=== PATIENT | female | born 1965 | race Hispanic/Latino ===

== ENCOUNTER 2017-09-05 19:56 | Emergency (ER) | payer BC ==
[2017-09-05 19:56] VITALS: BMI 19.7
[2017-09-05 20:05] VITALS: BP 118/68; PULSE 65; RESP 18; TEMP 97.9; O2SAT 98
--- NOTE | 2017-09-05 20:43 | ED PDOC ---
HPI: General Adult Time Seen by Provider: 09/05/17 20:10 Chief Complaint (Nursing): Abnormal Skin Integrity Chief Complaint (Provider): Left thumb laceration History Per: Patient History/Exam Limitations: no limitations Onset/Duration Of Symptoms: Mins Have you had recent travel within the past 21 days to any of the following countries: [place], [place], [place] or [place]?: No Additional Complaint(s): 52 yo female with no medical problems presents with left thumb laceration. Pt states she was cutting foot at home. Pt states her tetanus vaccine is UTD. Past Medical History Reviewed: Historical Data, Nursing Documentation, Vital Signs Vital Signs: Last Vital Signs Temp 97.9 F 09/05/17 20:02 Pulse 65 09/05/17 20:02 Resp 18 09/05/17 20:02 BP 118/68 09/05/17 20:02 Pulse Ox 98 09/05/17 20:02 - Medical History PMH: No Chronic Diseases - Surgical History Surgical History: Back Surgery ( c sping) - Family History Family History: States: No Known Family Hx - Living Arrangements Living Arrangements: With Family - Social History Current smoker - smoking cessation education provided: No Alcohol: None Drugs: Denies - Home Medications Home Medications: Ambulatory Orders Medication Instructions Recorded Acetaminophen/Hydrocodone Bi 2 tab PO 02/11/14 [Hydrocodone/APAP 325 mg-7.5 mg] Bupropion Hydrochloride [Bupropion] 450 mg PO DAILY 02/11/14 Fluoxetine HCl [Fluoxetine] 60 mg PO DAILY 02/11/14 Lamotrigine 2 tab PO 02/11/14 traZODone [trazODONE HYDROCHLORIDE] 1 tab PO 02/11/14 - Allergies Allergies/Adverse Reactions: Allergies Allergy/AdvReac Type Severity Reaction Status Date / Time tegaderm Allergy RASH Uncoded 09/05/17 20:02 Review of Systems ROS Statement: Except As Marked, All Systems Reviewed And Found Negative Constitutional: Negative for: Fever, Chills Skin: Positive for: Other Physical Exam - Reviewed Nursing Documentation Reviewed: Yes Vital Signs Reviewed: Yes - Physical Exam Appears: Positive for: Well, Non-toxic, No Acute Distress Head Exam: Positive for: ATRAUMATIC, NORMAL INSPECTION, NORMOCEPHALIC Skin: Positive for: Warm. Negative for: Normal Color (Laceration on the distal tip of the left thumb, 0.5cm skin and 0.5 into nail, no bleeding.) Eye Exam: Positive for: Normal appearance ENT: Positive for: Normal ENT Inspection Neck: Positive for: Normal, Painless ROM Cardiovascular/Chest: Positive for: Regular Rate, Rhythm Respiratory: Positive for: CNT, Normal Breath Sounds Gastrointestinal/Abdominal: Positive for: Normal Exam, Bowel Sounds, Soft Back: Positive for: Normal Inspection Extremity: Positive for: Normal ROM Neurologic/Psych: Positive for: Alert, Oriented - ECG O2 Sat by Pulse Oximetry: 98 Medical Decision Making Medical Decision Making: Wound irrigated with betadine and water. Dermabond applied with splint. Disposition - Clinical Impression Clinical Impression: Finger laceration - Patient ED Disposition Is Patient to be Admitted: No Counseled Patient/Family Regarding: Diagnosis, Need For Followup - Disposition Disposition: Routine/Home Disposition Time: 20:54 Condition: GOOD Instructions: Laceration Repair With Glue (DC) Forms: [employer] ([employer])
== END 2017-09-05 22:29 | disposition home or self-care (01) ==
LOC: H.ER 19:56
DX: S61.012A Laceration without foreign body of left thumb without damage to nail, initial encounter (principal); W26.0XXA Contact with knife, initial encounter; Y93.G1 Activity, food preparation and clean up; Y92.009 Unspecified place in unspecified non-institutional (private) residence as the place of occurrence of the external cause

== ENCOUNTER 2018-06-21 12:46 | Emergency (ER) | payer BC ==
[2018-06-21 12:46] VITALS: BMI 19.7
[2018-06-21 13:13] VITALS: BP 116/64; PULSE 79; RESP 18; TEMP 98.6; O2SAT 97
--- NOTE | 2018-06-21 13:32 | ED PDOC ---
Upper Extremity Pain/Injury Time Seen by Provider: 06/21/18 13:16 Chief Complaint (Nursing): Finger,Hand,&Wrist Chief Complaint (Provider): Left Thumb Pain and Sutures History Per: Patient History/Exam Limitations: no limitations Current Symptoms Are (Timing): Still Present Additional Complaint(s): 53 year old female presents to the ED for evaluation of a wound. Patient states that on 05/28, she was slicing a veggie when she accidentally sliced her left thumb. On that date, she reports going to an urgent care where they placed dermabond on the wound. She returned on 06/17 because the wound was not healing and there was increasing pain to the area. Today, she followed up with the same urgent care and they sent here to the ED for further evaluation. Denies fever and chills. Of note, patient has a history of chronic pain thus making her have a high tolerance to pain medications. She notes Dr. Carlson prescribed controlled naproxen and oxycodone. PMD: Dr. Carlson Past Medical History Reviewed: Historical Data, Nursing Documentation, Vital Signs Vital Signs: Last Vital Signs Temp 98.6 F 06/21/18 13:11 Pulse 79 06/21/18 13:11 Resp 18 06/21/18 13:11 BP 116/64 06/21/18 13:11 Pulse Ox 97 06/21/18 13:11 - Medical History PMH: Back Problems, Chronic Pain (back) - Surgical History Surgical History: Back Surgery ( c sping) - Family History Family History: States: Unknown Family Hx - Social History Current smoker - smoking cessation education provided: No - Home Medications Home Medications: Ambulatory Orders Medication Instructions Recorded Acetaminophen/Hydrocodone Bi 2 tab PO 02/11/14 [Hydrocodone/APAP 325 mg-7.5 mg] Bupropion Hydrochloride [Bupropion] 450 mg PO DAILY 02/11/14 Fluoxetine HCl [Fluoxetine] 60 mg PO DAILY 02/11/14 Lamotrigine 2 tab PO 02/11/14 traZODone [trazODONE HYDROCHLORIDE] 1 tab PO 02/11/14 Cephalexin [Keflex] 500 mg PO BID #14 capsule 06/21/18 - Allergies Allergies/Adverse Reactions: Allergies Allergy/AdvReac Type Severity Reaction Status Date / Time tegaderm Allergy RASH Uncoded 06/21/18 13:11 Review of Systems ROS Statement: Except As Marked, All Systems Reviewed And Found Negative Constitutional: Negative for: Fever, Chills Skin: Positive for: Other (sutures in place to left thumb with increasing pain) Physical Exam - Reviewed Nursing Documentation Reviewed: Yes Vital Signs Reviewed: Yes - Physical Exam Appears: Positive for: No Acute Distress Skin: Positive for: Normal Color Extremity: Positive for: Normal ROM (able to flex and extend left thumb without difficulty), Other (two sutures in place to left thumb with no signs of purulent discharge or surrounding erythematous) - ECG O2 Sat by Pulse Oximetry: 97 (RA) Pulse Ox Interpretation: Normal Medical Decision Making Medical Decision Making: Time: 1327 Initial Impression: suture removal, wound pain Initial Plan: --Sutures removed from left thumb without any complications. Patient educated on further wound care. --At this time, patient also requesting strong pain medication in the ED so a call is being placed for Dr. Carlson, her PMD - Scribe Attestation: Documented by Ruby Arias, acting as a scribe for Gayathri Ibarra PA-C. Provider Scribe Attestation: All medical record entries made by the Scribe were at my direction and personally dictated by me. I have reviewed the chart and agree that the record accurately reflects my personal performance of the history, physical exam, medical decision making, and the department course for this patient. I have also personally directed, reviewed, and agree with the discharge instructions and disposition. Disposition - Clinical Impression Clinical Impression: Visit for suture removal - Patient ED Disposition Is Patient to be Admitted: No - Disposition Referrals: Tyson Ortiz MD [Medical Doctor] - Disposition: Routine/Home Disposition Time: 13:55 Condition: FAIR Prescriptions: Cephalexin [Keflex] 500 mg PO BID #14 capsule Instructions: Stitches Removal
== END 2018-06-21 14:19 | disposition home or self-care (01) ==
LOC: H.ER 12:46
DX: Z48.02 Encounter for removal of sutures (principal); G89.29 Other chronic pain